=== PATIENT | female | born 1955 | race Two or more races ===

== ENCOUNTER 2018-10-09 19:33 | Emergency (ER) | payer MEDICAID, OTHER ==
[~2018-10-09] VITALS: Ht 160 cm; Wt 68.0 kg
[2018-10-09] MEDS ORDERED: METFORMIN HCL1000 M1 ORAL (19:44)
[2018-10-09 19:50] VITALS: BP 169/100
--- NOTE | 2018-10-09 20:44 | Diagnostic Imaging Report ---
EXAM: CT Head Without Intravenous Contrast CLINICAL HISTORY: AMS TECHNIQUE: Axial computed tomography images of the head/brain without intravenous contrast. CTDI is 70.38 mGy and DLP is 1312 mGy-cm. One or more of the following dose reduction techniques were used: automated exposure control, adjustment of the mA and/or kV according to patient size, use of iterative reconstruction technique. COMPARISON: No relevant prior studies available. FINDINGS: Brain: No intracranial hemorrhage. Encephalomalacia in the left temporal lobe. Ventricles: No ventriculomegaly. Bones/joints: Surgical changes in left calvarium. Soft tissues: Unremarkable. Sinuses: No acute sinusitis. Mastoid air cells: No mastoid effusion. IMPRESSION: No acute findings.
--- NOTE | 2018-10-09 22:03 | Emergency Room Report ---
History of Present Illness General Chief Complaint: Overdose Source: Patient Present Illness HPI She has a history of metastatic cancer. She has undergone chemotherapy and radiation in the past. She is currently only being monitored and is not on any type of anti-cancer therapy. She is on CBD. Today she took a new type of tablet that when was further investigated has THC in it. The patient is brought in because she became less alert and lethargic after taking the new CBD with THC. The patient is responsive but sleepy. There is been no recent illness. About one hour prior to the incident the patient was acting normally. There are no other complaints. Allergies: Coded Allergies: No Known Allergies (Unverified , 08/06/16) Patient History Past Medical History: see triage record, DM, other - Brain ca Social History: Reports: drug use; Denies: smoking, alcohol use Last Menstrual Period: more than 2 decades Now: No Reviewed Nursing Documentation: PMH: Agreed; PSxH: Agreed Nursing Documentation-PMH Hx Diabetes: Yes Hx Cancer: Yes - Brain CA 2014 Review of Systems All Other Systems: negative except mentioned in HPI Physical Exam Vital Signs Date Time Temp Pulse Resp B/P (MAP) Pulse Ox O2 Delivery O2 Flow Rate FiO2 10/09/18 19:40 98.4 120 20 169/100 98 Room Air Sp02 EP Interpretation: reviewed, normal General Appearance: no apparent distress, GCS 15, non-toxic, lethargic Head: normocephalic, atraumatic Eyes: bilateral eye normal inspection, bilateral eye PERRL, bilateral eye other - conjunctival erythema ENT: hearing grossly normal, normal pharynx, no angioedema Neck: full range of motion, supple/symm/no masses Respiratory: chest non-tender, lungs clear, normal breath sounds, no respiratory distress, no retraction, no accessory muscle use, speaking full sentences Cardiovascular #1: regular rate, rhythm, no edema Gastrointestinal: normal bowel sounds, non tender, soft, non-distended, no guarding, no rebound Rectal: deferred Musculoskeletal: back normal, gait/station normal, normal range of motion, non- tender Neurologic: alert, oriented x3, responsive, motor strength/tone normal, sensory intact, speech normal Skin: normal color, no rash, warm/dry, well hydrated Medical Decision Making Diagnostic Impression: Primary Impression: Drug intoxication ER Course The patient presents with THC and CBD intoxication. I did plan on obtaining basic labs and a head CT as a precaution given the patient's history, however, the patient became very upset with the blood draw and agitated. The patient's son shortly thereafter declined any further blood draws. They declined a CT of the head. The patient did clear her mental status and was able to articulate that she felt better. Although I had recommended a more thorough evaluation the patient and the family adamantly declined. The patient did have clearing of her mental status so I did not force the patient to sign out AGAINST MEDICAL ADVICE. The patient and her family were given close return precautions and follow-up instructions. Please note that this Emergency Department Report was dictated using [employer] technology software, occasionally this can lead to erroneous entry secondary to interpretation by the dictation equipment. Last Vital Signs Date Time Temp Pulse Resp B/P (MAP) Pulse Ox O2 Delivery O2 Flow Rate FiO2 10/09/18 19:50 120 20 Room Air 10/09/18 19:50 98.4 169/100 98 Status: improved Disposition: HOME, SELF-CARE Condition: Improved Referrals: ROWAN VIDES,REFERRING (PCP) Meg Bridges DO Oct 09, 2018 22:03
[2018-10-09 22:50] VITALS: BP 169/100
== END 2018-10-09 22:50 | disposition home or self-care (01) ==
LOC: EDBD 19:33 → EMR 20:21
DX: T50.991A Poisoning by other drugs, medicaments and biological substances, accidental (unintentional), initial encounter (principal); T40.7X Poisoning by, adverse effect of and underdosing of cannabis (derivatives); Y92.9 Unspecified place or not applicable; R53.83 Other fatigue; E11.9 Type 2 diabetes mellitus without complications; Z85.841 Personal history of malignant neoplasm of brain; Z92.21 Personal history of antineoplastic chemotherapy; Z92.3 Personal history of irradiation
CPT/HCPCS: 70450; 99284